=== PATIENT | female | born 1950 ===

== ENCOUNTER 2022-04-19 14:34 | Outpatient (CLI) | payer OTHER | END 2022-04-19 14:37 | disposition home or self-care (01) | LOC: SONOGRAMA 14:34 | PROVIDERS: ATTEND Pathology Anatomic Pathology & Clinical Pathology | DX: E04.2 Nontoxic multinodular goiter (principal); E07.9 Disorder of thyroid, unspecified; E04.1 Nontoxic single thyroid nodule; D34 Benign neoplasm of thyroid gland; E04.9 Nontoxic goiter, unspecified ==